=== PATIENT | female | born 1990 | race African-American/Black ===

== ENCOUNTER 2021-05-31 13:31 | Emergency (ER) | payer MEDICAID ==
[~2021-05-31] VITALS: Ht 165.1 cm; Wt 75.0 kg
[2021-05-31 14:09] VITALS: BP 103/56
== END 2021-05-31 14:12 | disposition home or self-care (01) ==
LOC: ER 14:00
DX: K59.00 Constipation, unspecified (principal); Z88.0 Allergy status to penicillin
CPT/HCPCS: 99281